=== PATIENT | male | born 1990 | race Two or more races ===

== ENCOUNTER 2020-03-07 20:38 | Emergency (ER) | payer OTHER ==
[~2020-03-07] VITALS: Ht 175.3 cm; Wt 81.6 kg
--- NOTE | 2020-03-07 21:00 | NUR ---
[facility] FOR OTB; RT TESTICLE SWELLING X 5DAYS. 08/04 PAIN. PT AAOX4, VSS. RR EVEN & UNLABORED. DENIES ANY OTHER DISCOMFORT. PT SEEN & EVAL'D BY TAMARA GARRIDO. WILL CONT TO MONITOR.
[2020-03-07] MEDS ORDERED: ACETAMINOPHEN 325 MG TABLET PO ONE (22:00)
[2020-03-07] MEDS ORDERED: CEFTRIAXONE 500 MG VIAL ONE (22:18)
[2020-03-07] MEDS ORDERED: ACETAMINOPHEN ES 500 MG TABLET ONE (22:19)
[2020-03-07] MEDS ORDERED: AZITHROMYCIN 250 MG TABLET ONE (22:19)
[2020-03-07] MEDS ORDERED: LIDOCAINE /MPF 1% VIAL 5 ML VIAL ONE (22:21)
[2020-03-07] MEDS ORDERED: CEFTRIAXONE 500 MG VIAL IM ONE (22:30)
[2020-03-07] MEDS ORDERED: AZITHROMYCIN 250 MG TABLET PO ONE (22:30)
--- NOTE | 2020-03-07 22:30 | NUR ---
MEDICATED ORDERED, PT DEVORA WELL.
[2020-03-07 22:44] LABS: APPEARANCE,URINE Clear (CLEAR); BILIRUBIN,URINE SMALL (NEGATIVE); BLOOD, URINE Negative Ery/uL (NEGATIVE); COLOR,URINE Yellow (YELLOW); KETONES,URINE 80 (NEGATIVE); LEUKOCYTE ESTERASE ,URINE Trace (NEGATIVE); NITRITE, URINE Negative (NEGATIVE); PROTEIN,URINE Trace mg/dl (NEGATIVE); UGLUCOSE Negative (NEGATIVE); UROBILINOGEN,URINE 0.2 EU/dL (0.2)
[2020-03-07 23:10] LABS: BACTERIA,URINE Few /HPF (None Seen); RBC,URINE 0-2 /HPF (0-2); SQUAMOUS EPITHELIAL CELL,UR Rare /HPF (None Seen); WBC,URINE 51-80 /HPF (0-3)
--- NOTE | 2020-03-07 23:37 | NUR ---
Patient discharged in custody in stable condition. Written and verbal after care instructions given. Patient verbalizes understanding of instruction.
[2020-03-07 23:38] VITALS: BP 118/74
== END 2020-03-07 23:38 ==
LOC: ER 20:38
DX: N43.3 Hydrocele, unspecified (principal); Z20.2 Contact with and (suspected) exposure to infections with a predominantly sexual mode of transmission; Z02.89 Encounter for other administrative examinations
CPT/HCPCS: 76870; 81001; 87086; 87491; 87591; 96372; 99284; J0696; J3490; 81000-TC